=== PATIENT | female | born 2000 | race African-American/Black ===

== ENCOUNTER 2024-07-03 20:06 | Emergency (ER) | payer SELFPAY ==
[~2024-07-03] VITALS: Ht 170.2 cm; Wt 108.0 kg
[2024-07-03 20:27] VITALS: BP 108/61; PULSE 80; RESP 16; TEMP 98.5; O2SAT 100
[2024-07-03 22:01] LABS: CLARITY URINE CLEAR (CLEAR); COLOR URINE YELLOW (YELLOW); GLUCOSE URINE NEGATIVE (NEGATIVE); KETONES URINE 3+ (NEGATIVE); LEUKOCYTE ESTERASE URINE NEGATIVE (NEGATIVE); NITRITE URINE NEGATIVE (NEGATIVE); OCCULT BLOOD URINE NEGATIVE (NEGATIVE); PH URINE 6.5 (4.5-8.0); PROTEIN URINE NEGATIVE (NEGATIVE); SPECIFIC GRAVITY URINE 1.025 (1.005-1.030)
[2024-07-03] MEDS: ONDANSETRON 4MG ODT PO ONE (22:37)
[2024-07-03 23:11] LABS: BASOPHILS % 0.3 % (0.0-2.0); EOSINOPHILS % 0.4 % (0.0-5.0); HEMATOCRIT. 41.8 % (36.0-48.0); HEMOGLOBIN. 13.7 g/dL (12.0-16.0); LYMPHOCYTES % 10.5 % (20.0-50.0); MEAN CORPUSCULAR HEMOGLOBIN 30.6 pg (28.0-32.0); MEAN CORPUSCULAR HGB CONC 32.9 g/dL (31.0-37.0); MEAN CORPUSCULAR VOLUME 93.2 fL (81.0-99.0); MEAN PLATELET VOLUME 7.4 fl (7.4-10.4); MONOCYTES % 5.6 % (2.0-8.0); NEUTROPHILS % 83.2 % (40.0-76.0); PLATELET 309 x1000/uL (130-400); RED BLOOD CELL COUNT 4.49 mill/uL (4.2-5.4); RED CELL DISTRIBUTION WIDTH 14.1 % (11.6-14.6); WHITE BLOOD COUNT 10.4 x1000/uL (4.5-11.0)
[2024-07-03 23:15] LABS: CHLORIDE 106 mEq/L (98-107); SODIUM 140 mEq/L (136-145)
[2024-07-03 23:16] LABS: CALCIUM 9.9 mg/dL (8.7-10.4); CARBON DIOXIDE 24 mEq/L (21-32)
[2024-07-03 23:21] LABS: CREATININE 0.9 mg/dL (0.6-1.0); GLUCOSE 127 mg/dL (70-105); UREA NITROGEN BLOOD 7 mg/dL (9-23)
[2024-07-03 23:23] LABS: ALANINE AMINOTRANSFERASE 26 IU/L (10-49); ALBUMIN 4.6 g/dL (3.2-4.8); ASPARTATE AMINOTRANSFERASE 22 IU/L (<34); BILIRUBIN DIRECT 0.1 mg/dL (<=3.0)
[2024-07-03 23:24] LABS: BILIRUBIN TOTAL 0.6 mg/dL (0.1-1.0); PROTEIN TOTAL 7.4 g/dL (6.0-8.3)
[2024-07-04] MEDS ORDERED: ONDA-241 MT (00:29)
[2024-07-04 01:00] LABS: HCG SCREEN NEGATIVE
== END 2024-07-04 00:46 | disposition home or self-care (01) ==
LOC: ER 20:06
DX: R10.9 Unspecified abdominal pain (principal)
CPT/HCPCS: 99284; 76705; 80076; 80048; 81003; 81025; 84703; 83690; 85025; 36415; Q0162